=== PATIENT | male | born 1960 | race Hispanic/Latino ===

== ENCOUNTER 2017-10-02 15:13 | Inpatient (IN) | payer MEDICAID ==
[2017-10-02 19:28] VITALS: BMI 29.9
[2017-10-02] MEDS ORDERED: Magnesium Hydroxide Susp 30 ml UD PO PRN (20:17)
[2017-10-02] MEDS ORDERED: Alum-Mag Hydrox-Simethicone Susp (30 mL) PO PRN (20:17)
[2017-10-02] MEDS ORDERED: Bismuth Subsalicylate 262 mg/15 ml Sus (240 ml) PO PRN (20:17)
--- NOTE | 2017-10-02 21:54 | PCM.BM ---
<Lily Leahy - Last Filed: 10/02/17 21:53> Treatment Plan Problems - Problems identified on initial assessmt Altered Sleep Patterns Date Initiated: 10/02/17 Time Initiated: 21:53 Assessment reference: NA Status: Active Altered thought process Date Initiated: 10/02/17 Time Initiated: 21:53 Assessment reference: NA Status: Active Treatment assets and liabiliti Patient Assests: cooperative, self-reliant, ADL independent, good support system , negotiates basic needs, good past tx response, cognitively intact Patient Liabilities: physical pain, medical problems - Milieu Protocol Maintain good personal hygiene: every shift Encourage regular showers, every shift Remind patient to perform daily oral care, every shift Assist patient to perform ADL's Conduct patient checks and document Observation sheet: Q15 minutes Maintain personal safety: every shift Educate patient to report safety concerns to staff, every shift Monitor environment for contraband/sharps Medication safety: Monitor for expected outcome, potential side effects: every shift, Assess barriers to learning: every shift, Assess readiness for medication education: every shift <Mindy Jones - Last Filed: 10/03/17 09:22> - Diagnosis (1) Bipolar disorder Status: Acute Interventions: Medication management, Individual and group therapy, Psychoeducation 10/03/17 09:22 <Candida Morel - Last Filed: 10/03/17 12:12> Family Contact Family contact: Patient agrees to contact, Family has been contacted by patient , Telephone contact initiated by staff Family contact name: Zoie Sanchez - sister Family contacted how many times per week?: 1 - Outside Agency [facility] Care involvment: Information-sharing Agency contact number: [address] [place] [address]. - Goals for Treatment Patient goals for treatment: Pt to be encouraged to attend activity and clinical groups 3-5x per week to decrease symptoms of paranoia, delusions and employ reality testing. Pt to be encouraged to participate in group milieu to develop coping skills to reduce psychiatric hospitalizations and further decompensation. Coordinate discharge resources needs by providing referral for psychiatric treatment follow up in the community. Discharge/Continuing Care - Education Needs Education Needs: Family Medication, Family Diagnosis/Disease Process, Family Coping Skills, Family Placement options, Family Community resources, Family Activities of Daily Living, Family Health Practices/Safety, Family Personal Hygiene/Grooming, Family Aftercare Safety Plan, Patient Medication, Patient Diagnosis/Disease Process, Patient Coping Skills, Patient Placement options, Patient Community resources, Patient Activities of Daily Living, Patient Health Practices/Safety, Patient Personal Hygiene/Grooming, Patient Aftercare Safety Plan - Discharge Discharge Criteria: Tolerates medication w/o severe side effects, Free of paranoid thoughts, Free of agitation, Normal sleep pattern, Ability to care for self, Reduction of target symptoms Discharge to:: Home - Additional Comments 10/03/17 12:07 Pt seen and discussed in team meeting. Reason for hospitalization reviewed and discussed. Pt reported he was at [facility] for several days following chest pain and anxiety. Pt reported that his pacemaker batteries had to be replaced. Pt reported medication non-adherence. Pt presents with acute mae, pressured speech, disorganized thought process, flight of ideas, and hyperverbal. Pt presents with poor insight and judgment due to chronic mental illness and medication non-adherence. Pt's social and medical issues reviewed and discussed. 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 Pt signed a 48 hour notice of intent to leave on 10/03/2017 at 9:12AM. [facility] [place] entered and Screening process explained to pt. Pt verbalized understanding of same. Pt's medications reviewed. SW to continue to follow case. SW to contact pt's sister for additional collateral information. - Treatment Team Participation Discussed with Family/SO: No Was Patient/Family/SO present at Treatment Team Meeting: Yes
[2017-10-03 06:33] LABS: HEMOGLOBIN 13.5 g/dL (12.0-18.0); MEAN CELL VOLUME 91.2 fl (80.0-94.0); RBC 4.36 Mil/uL (4.40-5.90); RED CELL DISTRIBUTION WIDTH 13.7 % (11.5-14.5); WHITE BLOOD COUNT 5.6 K/uL (4.8-10.8)
[2017-10-03 06:53] LABS: ALB/GLOB RATIO 1.4 (1.0-2.1); ALBUMIN 3.7 g/dL (3.5-5.0); ALT/SGPT 49 U/L (21-72); AST/SGOT 36 U/L (17-59); BLOOD UREA NITROGEN 16 mg/dl (9-20); GFR NON-AFRICAN AMERICAN > 60; HDL CHOLESTEROL 50 MG/DL (30-70)
[2017-10-03 06:58] LABS: IRON 53 ug/dL (49-181)
[2017-10-03 07:04] LABS: LDL CHOLESTEROL 47 mg/dL (0-129); T4 3.58 ug/dl (5.5-11.0)
[2017-10-03 07:11] LABS: % IRON SATURATION 18 % (20-55); TOTAL IRON BINDING CAPACITY 294 ug/dL (250-450)
--- NOTE | 2017-10-03 08:44 | PCM.PSYCH ---
Initial Psychiatric Evaluation - Initial Psychiatric Evaluation Type of Admission: Voluntary Legal Status: Capacity Chief Complaint (in patient's own words): "I don't need to be here." Patient's Reaction to Hospitalization: HPI: 56 yo male w/ h/o Bipolar disorder transferred from [facility] for acute mae, pressured speech, tangential thought process and paranoia. When asked if he hears voices, he hesitates to answer and says "I talk to myself." Denies acute VH/SI/HI. Patient does not believe he needs to be in the hospital and requested to sign a 48 hr letter requesting to be discharged. PPHx: H/o 1 past psychiatric hospitalization in [facility] 7 years; h/o Bipolar Disorder MHx: HTN, HLD, CAD, Pacemaker, h/o back surgery, h/o kidney stones, h/o L ankle broken, osteoarthritis ALL: Codeine, IV contrast, PCN, Sulfa drugs FHx: Sister w/ traumatic brain injury SHx: Lives w/ mother; no drugs/etoh/cig use; remote h/o cocaine use (12yrs ago) Current Medications: Active Medications Generic Name Dose Route Start Last Admin Trade Name Freq PRN Reason Stop Dose Admin Acetaminophen 650 mg 10/02/17 20:17 10/02/17 21:19 Tylenol 325mg Tab PO 650 mg Q4 PRN Administration Pain, moderate (4-7) Al Hydrox/Mg Hydrox/Simethicone 30 ml 10/02/17 20:17 Maalox Plus 30 Ml PO Q4 PRN Dyspepsia Bismuth Subsalicylate 524 mg 10/02/17 20:17 Pepto-Bismol PO Q4 PRN Diarrhea Lorazepam 1 mg 10/02/17 20:47 Ativan IM Q8 PRN Agitation Lorazepam 1 mg 10/02/17 20:48 10/02/17 23:30 Ativan PO 1 mg Q8 PRN Administration Agitation Magnesium Hydroxide 30 ml 10/02/17 20:17 Milk Of Magnesia PO HS PRN Constipation Olanzapine 10 mg 10/02/17 22:00 10/02/17 21:19 Zyprexa PO 10 mg HS STEVEN Administration Past Psychiatric History - Past Psychiatric History Previous Treatment History: Inpatient Pertinent Medical Hx (Current Medical&Sleep Prob, Allergies): Allergies Allergy/AdvReac Type Severity Reaction Status Date / Time codeine Allergy RASH Verified 10/02/17 19:31 Iodinated Contrast- Oral and Allergy RASH Verified 10/02/17 19:32 IV Dye Penicillins Allergy RASH Verified 10/02/17 19:32 Sulfa (Sulfonamide Allergy RASH Verified 10/02/17 20:32 Antibiotics) Aspirin [Aspirin Chewable] 81 mg PO DAILY 10/02/17 Atorvastatin [Lipitor] 20 mg PO HS 10/02/17 Losartan Potassium [Cozaar] 100 mg PO DAILY 10/02/17 Metoprolol Succinate [Metoprolol Succinate] 200 mg PO DAILY 10/02/17 OLANZapine [Zyprexa] 10 mg PO HS 10/02/17 amLODIPine [Norvasc] 10 mg PO DAILY 10/02/17 diaZEpam [Valium] 2 mg PO BID PRN 10/02/17 Review of Systems - Psychiatric Psychiatric: As Per HPI, Abnormal Sleep Pattern, Anxiety, Difficulty Concentrating, Irritability, Mood Swings, Paranoia Mental Status Examination - Personal Presentation Personal Presentation: Looks stated age - Affect Affect: Other (Labile) - Motor Activity Motor Activity: Calm - Reliability in Providing Information Reliability in Providing Information: Fair - Speech Speech: Tangential - Mood Mood: Euphoric - Formal Thought Process Formal Thought Process: Loosening of associations, Flight of ideas, Circumstantial - Hallucinations/Delusions Additional comments: When asked about FARHAT, he states "I talk to myself" - Obsessions/Compulsions Obsessions: No Compulsions: No - Cognitive Functions Orientation: Person, Place, Situation, Time Sensorium: Alert Estimate of Intelligence: Average Judgement: Imparied, as evidence by: Lack of insight into illness Memory: Recent intact, as evidence by: Ability to recall events of the day, Remote intact, as evidenced by: Abilit to recall sig. life events - Risk Risk: Diminished functioning - Strength & Assets Inventory Strength & Assets Inventory: Employment history DSM 5 DX - DSM 5 DSM 5 Diagnosis: Bipolar Disorder - Recommended/Plan of Treatment Treatment Recommendations and Plan of Treatment: Bipolar Disorder -Admit to psychiatry unit -Individual and group therapy -Increase Zyprexa -Medicine consult -Screen for involuntary psychiatric admission -Disposition planning Discharge Plan and Discharge Criteria: Screen patient for involuntary psychiatric admission; if patient does not meet criteria for involuntary commitment, patient will be discharged to home - Smoking Cessation Smoking Cessation Initiated: No Reason for not providing: Not indicated
[2017-10-03] MEDS: Metoprolol Succinate 100 mg XL Tab PO SCH (10:01)
[2017-10-03 13:18] LABS: FOLATE 9.2 ng/mL
--- NOTE | 2017-10-03 13:28 | CP.PCM.CON ---
History of Present Illness - History of Present Illness History of Present Illness: 56 yo male with history of Bipolar DO, HTN, HLD and cardiac arrhythmia (with pacemaker recently replaced a week ago) admitted because of manic episode and briana. Review of Systems - Review of Systems All systems: reviewed and no additional remarkable complaints except (aside from those mentioned above, 12 point system review were negative by me) Past Patient History - Tetanus Immunizations Tetanus Immunization: Unknown - Past Social History Smoking Status: Never Smoked Chewing Tobacco Use: No Cigar Use: No Alcohol: None Drugs: Denies - CARDIAC Hx Cardia Arrhythmia: Yes Hx Hypercholesterolemia: Yes Hx Hypertension: Yes Hx Pacemaker: Yes (left side) - RENAL Hx Kidney Stones: Yes (history) - MUSCULOSKELETAL/RHEUMATOLOGICAL Hx Back Pain: Yes Hx Falls: Yes Hx Herniated Disk: Yes Hx Spinal Stenosis: Yes - PSYCHIATRIC Hx Bipolar Disorder: Yes Hx Substance Use: Yes (cocaine,marijuana,oxycodone- 12 yrs ago) - SURGICAL HISTORY Other/Comment: kidney stone removal,lithotripsy - ANESTHESIA Hx Anesthesia: Yes Hx Anesthesia Reactions: No Hx Malignant Hyperthermia: No Has any member of the family had a problem w/ anesthesia?: No Meds Allergies/Adverse Reactions: Allergies Allergy/AdvReac Type Severity Reaction Status Date / Time codeine Allergy RASH Verified 10/02/17 19:31 Iodinated Contrast- Oral and Allergy RASH Verified 10/02/17 19:32 IV Dye Penicillins Allergy RASH Verified 10/02/17 19:32 Sulfa (Sulfonamide Allergy RASH Verified 10/02/17 20:32 Antibiotics) - Medications Medications: Current Medications Acetaminophen (Tylenol 325mg Tab) 650 mg PO Q4 PRN PRN Reason: Pain, moderate (4-7) Last Admin: 10/02/17 21:19 Dose: 650 mg Al Hydrox/Mg Hydrox/Simethicone (Maalox Plus 30 Ml) 30 ml PO Q4 PRN PRN Reason: Dyspepsia Amlodipine Besylate (Norvasc) 10 mg PO DAILY [facility] Aspirin (Aspirin Chewable) 81 mg PO DAILY [facility] Last Admin: 10/03/17 09:11 Dose: 81 mg Atorvastatin Calcium (Lipitor) 20 mg PO DAILY@1600 [facility] Bismuth Subsalicylate (Pepto-Bismol) 524 mg PO Q4 PRN PRN Reason: Diarrhea Lorazepam (Ativan) 1 mg IM Q8 PRN PRN Reason: Agitation Lorazepam (Ativan) 1 mg PO Q8 PRN PRN Reason: Agitation Last Admin: 10/02/17 23:30 Dose: 1 mg Losartan Potassium (Cozaar) 100 mg PO DAILY [facility] Last Admin: 10/03/17 10:04 Dose: 100 mg Magnesium Hydroxide (Milk Of Magnesia) 30 ml PO HS PRN PRN Reason: Constipation Metoprolol Succinate (Toprol Xl) 200 mg PO DAILY [facility] Last Admin: 10/03/17 10:01 Dose: 200 mg Olanzapine (Zyprexa) 20 mg PO HS [facility] Physical Exam - Constitutional Appears: No Acute Distress - Head Exam Head Exam: absent: ATRAUMATIC (abrasions on right parietal regions) - Eye Exam Eye Exam: absent: Scleral icterus - ENT Exam ENT Exam: Mucous Membranes Moist - Neck Exam Neck exam: Negative for: Meningismus - Respiratory Exam Respiratory Exam: absent: Rales, Rhonchi, Wheezes, Respiratory Distress - Cardiovascular Exam Cardiovascular Exam: REGULAR RHYTHM, +S1, +S2 - GI/Abdominal Exam GI & Abdominal Exam: Soft. absent: Tenderness - Rectal Exam Rectal Exam: Deferred - Extremities Exam Extremities exam: Negative for: calf tenderness, pedal edema - Back Exam Back exam: absent: tenderness - Neurological Exam Neurological exam: Alert, Oriented x3 - Psychiatric Exam Psychiatric exam: Normal Affect - Skin Skin Exam: Dry, Intact Results - Vital Signs Recent Vital Signs: Last Vital Signs Temp 97.3 F L 10/03/17 06:00 Pulse 103 H 10/03/17 10:04 Resp 19 10/03/17 06:00 BP 125/88 10/03/17 10:04 Pulse Ox - Labs Result Diagrams: 10/03/17 06:20 10/03/17 06:20 Labs: Laboratory Results - last 24 hr 10/03/17 10/03/17 10/03/17 06:20 06:20 06:20 WBC 5.6 RBC 4.36 L Hgb 13.5 Hct 39.8 MCV 91.2 MCH 31.0 MCHC 34.0 RDW 13.7 Plt Count 203 Sodium 141 Potassium 3.7 Chloride 108 H Carbon Dioxide 27 Anion Gap 10 BUN 16 Creatinine 0.8 Est GFR ( Amer) > 60 Est GFR (Non-Af Amer) > 60 Random Glucose 104 Hemoglobin A1c 5.0 Calcium 9.0 Iron TIBC % Saturation Ferritin 108.0 Total Bilirubin 0.5 AST 36 ALT 49 Alkaline Phosphatase 43 Total Protein 6.3 Albumin 3.7 Globulin 2.6 Albumin/Globulin Ratio 1.4 Triglycerides 151 H Cholesterol 127 LDL Cholesterol Direct 47 HDL Cholesterol 50 Vitamin B12 477 Free T4 Thyroxine (T4) 3.58 L TSH 3rd Generation 1.20 10/03/17 10/03/17 06:20 06:20 WBC RBC Hgb Hct MCV MCH MCHC RDW Plt Count Sodium Potassium Chloride Carbon Dioxide Anion Gap BUN Creatinine Est GFR ( Amer) Est GFR (Non-Af Amer) Random Glucose Hemoglobin A1c Calcium Iron 53 TIBC 294 % Saturation 18 L Ferritin Total Bilirubin AST ALT Alkaline Phosphatase Total Protein Albumin Globulin Albumin/Globulin Ratio Triglycerides Cholesterol LDL Cholesterol Direct HDL Cholesterol Vitamin B12 Free T4 0.58 L Thyroxine (T4) TSH 3rd Generation Assessment & Plan (1) Briana Status: Acute Comment: psyche is managing (2) Paranoia Status: Acute Comment: psyche is managing
[2017-10-03 14:23] LABS: SQUAMOUS EPITHIAL < 1 /hpf (0-5); URINE BILIRUBIN NEGATIVE (NEGATIVE); URINE BLOOD NEGATIVE (NEGATIVE); URINE CLARITY CLEAR (Clear); URINE COLOR YELLOW (YELLOW); URINE GLUCOSE (UA) NEG (Normal); URINE LEUKOCYTE ESTERASE NEG Leu/uL (Negative); URINE PROTEIN NEGATIVE (NEGATIVE); URINE UROBILINOGEN 0.2-1.0 mg/dL (0.2-1.0)
--- NOTE | 2017-10-03 14:49 | CT ---
Date of service: 10/03/2017 PROCEDURE: CT HEAD WITHOUT CONTRAST. HISTORY: head injury COMPARISON: None available. TECHNIQUE: Axial computed tomography images were obtained through the head/brain without intravenous contrast. Radiation dose: Total exam DLP = 929.47 mGy-cm. This CT exam was performed using one or more of the following dose reduction techniques: Automated exposure control, adjustment of the mA and/or kV according to patient size, and/or use of iterative reconstruction technique. FINDINGS: HEMORRHAGE: No intracranial hemorrhage. BRAIN: No mass effect or edema. No atrophy. Moderate patchy periventricular and deep white matter lucency consistent with chronic microvascular ischemic change. No evidence of acute infarct. VENTRICLES: Unremarkable. No hydrocephalus. CALVARIUM: Unremarkable. PARANASAL SINUSES: Unremarkable as visualized. No significant inflammatory changes. MASTOID AIR CELLS: Unremarkable as visualized. No inflammatory changes. OTHER FINDINGS: None. IMPRESSION: No acute intracranial hemorrhage. Chronic white matter ischemic change. Otherwise unremarkable.
--- NOTE | 2017-10-03 16:24 | CARD ---
APPROVED REPORT Date of service: 10/03/2017 EKG Measurement Heart [id number] <Conclusion> Atrial fibrillation with rapid ventricular response Voltage criteria for left ventricular hypertrophy Abnormal ECG
--- NOTE | 2017-10-03 20:41 | CP.PCM.CON ---
History of Present Illness - History of Present Illness History of Present Illness: asked to see pt by pcp for medication management. pt with dizziness and fall in am. pt states he had just had bm, bent over to grab pants and stumbled forward. unsure if he was dizzy. bp then 90/60, bp performed 30 min later was 128/90. denies loc, or any other assoc symptoms. pt has been on his current med regimen for 12 years and stable. pt recently had ppm replaced and is wo complaints of pain, sob, palp, schafer, blurry vision or double vision. Review of Systems - Constitutional Constitutional: As Per HPI. absent: Anorexia, Chills, Daytime Sleepiness, Excessive Sweating, Fatigue, Fever, Frequent Falls, Headache, Increased Appetite , Lethargy, Malaise, Night Sweats, Snoring, Sleep Apnea, Weight Gain, Weight Loss, Weakness, Other - EENT Eyes: As Per HPI. absent: Blind Spots, Blurred Vision, Change in Vision, Decreased Night Vision, Diplopia, Discharge, Dry Eye, Exophthalmos, Floaters, Irritation, Itchy Eyes, Loss of Peripheral Vision, Pain, Photophobia, Requires Corrective Lenses, Sees Flashes, Spots in Vision, Tunnel Vision, Other Visual Disturbances, Loss of Vision, Other Ears: As Per HPI. absent: Decreased Hearing, Ear Discharge, Ear Pain, Tinnitus , Abnormal Hearing, Disequilibrium, Dizziness, Other Nose/Mouth/Throat: As Per HPI. absent: Epistaxis, Nasal Congestion, Nasal Discharge, Nasal Obstruction, Nasal Trauma, Nose Pain, Post Nasal Drip, Sinus Pain, Sinus Pressure, Bleeding Gums, Change in Voice, Dental Pain, Dry Mouth, Dysphagia, Halitosis, Hoarsness, Lip Swelling, Mouth Lesions, Mouth Pain, Odynophagia, Sore Throat, Throat Swelling, Tongue Swelling, Facial Pain, Neck Pain, Neck Mass, Other - Cardiovascular Cardiovascular: As Per HPI. absent: Acrocyanosis, Chest Pain, Chest Pain at Rest, Chest Pain with Activity, Claudication, Diaphoresis, Dyspnea, Dyspnea on Exertion, Edema, Irregular Heart Rhythm, Pain Radiating to Arm/Neck/Jaw, Leg Edema, Leg Ulcers, Lightheadedness, Orthopnea, Palpitations, Paroxysmal Nocturnal Dyspnea, Pedal Edema, Radiating Pain, Rapid Heart Rate, Slow Heart Rate, Syncope, Other - Respiratory Respiratory: As Per HPI. absent: Cough, Dyspnea, Hemoptysis, Dyspnea on Exertion, Wheezing, Snoring, Stridor, Pain on Inspiration, Chest Congestion, Excessive Mucous Production, Change in Mucous Color, Pain with Coughing, Other - Gastrointestinal Gastrointestinal: As Per HPI. absent: Abdominal Pain, Belching, Bloating, Change in Bowel Habits, Change in Stool Character, Coffee Ground Emesis, Constipation, Cramping, Diarrhea, Dyspepsia, Dysphagia, Early Satiety, Excessive Flatus, Fecal Incontinence, Heartburn, Hematemesis, Hematochezia, Loose Stools, Melena, Nausea, Odynophagia, Temesmus, Vomiting, Other - Genitourinary Genitourinary: As Per HPI. absent: Change in Urinary Stream, Difficulty Urinating, Dysuria, Flank Pain, Hematuria, Pyuria, Nocturia, Urinary Incontinence, Urinary Frequency, Urinary Hesitance, Urinary Urgency, Voiding Freq/Small Amts, Freq UTI, Hx Renal/Bladder Calculi, Hx /Renal Surgery, Bladder Distension, Other - Reproductive: Male Reproductive:Male: As Per HPI - Musculoskeletal Musculoskeletal: As Per HPI. absent: Abnormal Gait, Arthralgias, Atrophy, Back Pain, Deformity, Joint Swelling, Limited Range of Motion, Loss of Height, Muscle Cramps, Muscle Weakness, Myalgias, Neck Pain, Numbness, Radiating Pain into Limb, Stiffness, Tingling, Other - Integumentary Integumentary: As Per HPI. absent: Acne, Alopecia, Bleeding Lesions, Change in Hair, Change in Nails, Change in Pigmentation, Changing Lesions, Dry Skin, Erythema, Furuncle, Hirsutism, Lesions, New Lesions, Non-Healing Lesions, Photosensitivity, Pruritus, Rash, Skin Pain, Skin Ulcer, Sores, Striae, Swelling , Unusual Bruising, Wounds, Jaundice, Other - Neurological Neurological: As Per HPI. absent: Abnormal Gait, Abnormal Hearing, Abnormal Movements, Abnormal Speech, Behavioral Changes, Burning Sensations, Confusion, Convulsions, Disequilibrium, Dizziness, Numbness, Focal Weakness, Frequent Falls , Headaches, Lack of Coordination, Loss of Vision, Memory Loss, Paresthesias, Radicular Pain, Restless Legs, Sensory Deficit, Syncope, Tingling, Tremor, Vertigo, Weakness, Other Visual Disturbances, Other - Psychiatric Psychiatric: As Per HPI. absent: Abnormal Sleep Pattern, Anhedonia, Anxiety, Auditory Hallucinations, Behavioral Changes, Change in Appetite (s), Change in Libido, Confusion, Depression, Difficulty Concentrating, Hallucinations, Homicidal Ideation, Hopelessness, Irritability, Memory Loss, Mood Swings, Panic Attacks, Paranoia, Suicidal Ideation, Visual Hallucinations, Tactile Hallucinations, Other - Endocrine Endocrine: As Per HPI. absent: Change in Body Appearance, Change in Libido, Cold Intolorance, Deepening of Voice, Excessive Sweating, Fatigue, Flushing, Heat Intolorance, Increase in Ring/Shoe/Hat Size, Palpitations, Polydipsia, Polyphagia, Polyuria, Other - Hematologic/Lymphatic Hematologic: As Per HPI. absent: Easy Bleeding, Easy Bruising, Lymphadenopathy , Other Past Patient History - Tetanus Immunizations Tetanus Immunization: Unknown - Past Social History Smoking Status: Never Smoked Chewing Tobacco Use: No Cigar Use: No Alcohol: None Drugs: Denies - CARDIAC Hx Cardia Arrhythmia: Yes Hx Hypercholesterolemia: Yes Hx Hypertension: Yes Hx Pacemaker: Yes (left side) - RENAL Hx Kidney Stones: Yes (history) - MUSCULOSKELETAL/RHEUMATOLOGICAL Hx Back Pain: Yes Hx Falls: Yes Hx Herniated Disk: Yes Hx Spinal Stenosis: Yes - PSYCHIATRIC Hx Bipolar Disorder: Yes Hx Substance Use: Yes (cocaine,marijuana,oxycodone- 12 yrs ago) - SURGICAL HISTORY Other/Comment: kidney stone removal,lithotripsy - ANESTHESIA Hx Anesthesia: Yes Hx Anesthesia Reactions: No Hx Malignant Hyperthermia: No Has any member of the family had a problem w/ anesthesia?: No Meds Allergies/Adverse Reactions: Allergies Allergy/AdvReac Type Severity Reaction Status Date / Time codeine Allergy RASH Verified 10/02/17 19:31 Iodinated Contrast- Oral and Allergy RASH Verified 10/02/17 19:32 IV Dye Penicillins Allergy RASH Verified 10/02/17 19:32 Sulfa (Sulfonamide Allergy RASH Verified 10/02/17 20:32 Antibiotics) - Medications Medications: Current Medications Acetaminophen (Tylenol 325mg Tab) 650 mg PO Q4 PRN PRN Reason: Pain, moderate (4-7) Last Admin: 10/03/17 14:09 Dose: 650 mg Al Hydrox/Mg Hydrox/Simethicone (Maalox Plus 30 Ml) 30 ml PO Q4 PRN PRN Reason: Dyspepsia Amlodipine Besylate (Norvasc) 10 mg PO DAILY [facility] Last Admin: 10/03/17 14:14 Dose: Not Given Aspirin (Aspirin Chewable) 81 mg PO DAILY [facility] Last Admin: 10/03/17 09:11 Dose: 81 mg Atorvastatin Calcium (Lipitor) 20 mg PO DAILY@1600 [facility] Last Admin: 10/03/17 16:26 Dose: 20 mg Bismuth Subsalicylate (Pepto-Bismol) 524 mg PO Q4 PRN PRN Reason: Diarrhea Lorazepam (Ativan) 1 mg IM Q8 PRN PRN Reason: Agitation Lorazepam (Ativan) 1 mg PO Q8 PRN PRN Reason: Agitation Last Admin: 10/03/17 14:22 Dose: 1 mg Losartan Potassium (Cozaar) 100 mg PO DAILY [facility] Last Admin: 10/03/17 10:04 Dose: 100 mg Magnesium Hydroxide (Milk Of Magnesia) 30 ml PO HS PRN PRN Reason: Constipation Metoprolol Succinate (Toprol Xl) 200 mg PO DAILY [facility] Last Admin: 10/03/17 10:01 Dose: 200 mg Olanzapine (Zyprexa) 20 mg PO HS [facility] Physical Exam - Constitutional Appears: Well - Head Exam Head Exam: ATRAUMATIC, NORMAL INSPECTION, NORMOCEPHALIC - Eye Exam Eye Exam: EOMI, Normal appearance, PERRL. absent: Conjunctival injection, Nystagmus, Periorbital swelling, Periorbital tenderness, Scleral icterus Pupil Exam: NORMAL ACCOMODATION, PERRL. absent: Fixed, Irregular, Miosis, Mydriatic, Unequal - ENT Exam ENT Exam: Mucous Membranes Moist, Normal Exam. absent: Mucous Membranes Dry, Normal External Ear Exam, Normal Oropharynx, TM's Normal Bilaterally - Neck Exam Neck exam: Positive for: Normal Inspection - Respiratory Exam Respiratory Exam: Clear to Auscultation Bilateral, NORMAL BREATHING PATTERN. absent: Accessory Muscle Use, Chest Wall Tenderness, Decreased Breath Sounds, Prolonged Expiratory Phase, Rales, Rhonchi, Wheezes, Respiratory Distress, Stridor - Cardiovascular Exam Cardiovascular Exam: REGULAR RHYTHM, +S1, +S2, Systolic Murmur. absent: Bradycardia, Tachycardia, Clicks, Diastolic murmur, Gallop, Irregular Rhythm, JVD, RRR, Rubs, +S4 - GI/Abdominal Exam GI & Abdominal Exam: Normal Bowel Sounds, Soft. absent: Bruit, Diminished Bowel Sounds, Distended, Firm, Guarding, Hernia, Hyperactive Bowel Sounds, Hypoactive Bowel Sounds, Mass, Organomegaly, Pulsatile Mass, Rebound, Rigid, Tenderness - Rectal Exam Rectal Exam: Deferred - Extremities Exam Extremities exam: Positive for: normal inspection. Negative for: calf tenderness, full ROM, joint swelling, normal capillary refill, pedal edema, tenderness, pedal pulses present - Back Exam Back exam: NORMAL INSPECTION. absent: CVA tenderness (L), CVA tenderness (R), FULL ROM, muscle spasm, paraspinal tenderness, rash noted, tenderness, vertebral tenderness - Neurological Exam Neurological exam: Alert, CN II-XII Intact, Normal Gait, Oriented x3, Reflexes Normal - Psychiatric Exam Psychiatric exam: Normal Affect, Normal Mood - Skin Skin Exam: Dry, Intact, Normal Color, Warm Results - Vital Signs Recent Vital Signs: Last Vital Signs Temp 97.6 F 10/03/17 15:48 Pulse 69 10/03/17 15:48 Resp 20 10/03/17 15:48 BP 98/70 L 10/03/17 15:48 Pulse Ox - Labs Result Diagrams: 10/03/17 06:20 10/03/17 06:20 Labs: Laboratory Results - last 24 hr 10/03/17 10/03/17 10/03/17 06:20 06:20 06:20 WBC 5.6 RBC 4.36 L Hgb 13.5 Hct 39.8 MCV 91.2 MCH 31.0 MCHC 34.0 RDW 13.7 Plt Count 203 Sodium 141 Potassium 3.7 Chloride 108 H Carbon Dioxide 27 Anion Gap 10 BUN 16 Creatinine 0.8 Est GFR ( Amer) > 60 Est GFR (Non-Af Amer) > 60 Random Glucose 104 Hemoglobin A1c 5.0 Calcium 9.0 Iron TIBC % Saturation Ferritin 108.0 Total Bilirubin 0.5 AST 36 ALT 49 Alkaline Phosphatase 43 Total Protein 6.3 Albumin 3.7 Globulin 2.6 Albumin/Globulin Ratio 1.4 Triglycerides 151 H Cholesterol 127 LDL Cholesterol Direct 47 HDL Cholesterol 50 Vitamin B12 477 Folate 9.2 Free T4 Thyroxine (T4) 3.58 L TSH 3rd Generation 1.20 Urine Color Urine Clarity Urine pH Ur Specific [place] Urine Protein Urine Glucose (UA) Urine Ketones Urine Blood Urine Nitrate Urine Bilirubin Urine Urobilinogen Ur Leukocyte Esterase Urine RBC (Auto) Urine Microscopic WBC Ur Squamous Epith Cells RPR 10/03/17 10/03/17 10/03/17 06:20 06:20 06:20 WBC RBC Hgb Hct MCV MCH MCHC RDW Plt Count Sodium Potassium Chloride Carbon Dioxide Anion Gap BUN Creatinine Est GFR ( Amer) Est GFR (Non-Af Amer) Random Glucose Hemoglobin A1c Calcium Iron 53 TIBC 294 % Saturation 18 L Ferritin Total Bilirubin AST ALT Alkaline Phosphatase Total Protein Albumin Globulin Albumin/Globulin Ratio Triglycerides Cholesterol LDL Cholesterol Direct HDL Cholesterol Vitamin B12 Folate Free T4 0.58 L Thyroxine (T4) TSH 3rd Generation Urine Color Urine Clarity Urine pH Ur Specific [place] Urine Protein Urine Glucose (UA) Urine Ketones Urine Blood Urine Nitrate Urine Bilirubin Urine Urobilinogen Ur Leukocyte Esterase Urine RBC (Auto) Urine Microscopic WBC Ur Squamous Epith Cells RPR Nonreactive 10/03/17 14:13 WBC RBC Hgb Hct MCV MCH MCHC RDW Plt Count Sodium Potassium Chloride Carbon Dioxide Anion Gap BUN Creatinine Est GFR ( Amer) Est GFR (Non-Af Amer) Random Glucose Hemoglobin A1c Calcium Iron TIBC % Saturation Ferritin Total Bilirubin AST ALT Alkaline Phosphatase Total Protein Albumin Globulin Albumin/Globulin Ratio Triglycerides Cholesterol LDL Cholesterol Direct HDL Cholesterol Vitamin B12 Folate Free T4 Thyroxine (T4) TSH 3rd Generation Urine Color Yellow Urine Clarity Clear Urine pH 7.0 Ur Specific [place] 1.016 Urine Protein Negative Urine Glucose (UA) Neg Urine Ketones Negative Urine Blood Negative Urine Nitrate Negative Urine Bilirubin Negative Urine Urobilinogen 0.2-1.0 Ur Leukocyte Esterase Neg Urine RBC (Auto) 4 H Urine Microscopic WBC < 1 Ur Squamous Epith Cells < 1 RPR Assessment & Plan (1) New onset a-fib Status: Acute Comment: SEEN ON EKG. ON EXAM PTS PULSE WAS NML AND REGULAR. (2) Dizziness Status: Acute (3) Orthostatic hypotension dysautonomic syndrome Status: Acute (4) Pacemaker Status: Acute (5) HTN (hypertension) Status: Acute (6) Dyslipidemia Status: Acute (7) Bipolar disorder Status: Acute (8) Paranoia Status: Acute - Assessment and Plan (Free Text) Plan: DIZZINESS LIKELY DUE TO VASOVAGAL VS AUTONOMIC DYSFUNCTION FROM BENDING OVER. WOULD MONITOR FOR FURTHER SYMPTOMS, IF THEY OCCUR THEN MAY NEED TO TITRATE BP MED DOSES DOWN. THE ADDITION OF PSYCH MEDS MAY LEAD TO LOWER BP. FOR NOW THE MEDICATIONS SHOULD STAY THE SAME FOR BP AND DYSLIPIDEMIA AFIB ON EKG, PT HAS NO HX OF AFIB. WOULD REPEAT THE ECG. GIVEN RECENT FALL WOULD NOT START ANTICOAGULATION UNTIL PERSISTENT AFIB IS DIAGNOSED. KEEP PT ON ASA. ECHO SHOULD BE DONE TO EVAL FOR ANY STRUCTURAL ABN. 95 MIN TOTAL CARE TIME
[2017-10-04] MEDS: Metoprolol Succinate 100 mg XL Tab PO SCH (08:42)
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
[2017-10-05] MEDS: Metoprolol Succinate 100 mg XL Tab PO SCH (08:45)
--- NOTE | 2017-10-05 12:13 | CARD ---
APPROVED REPORT Date of service: 10/04/2017 <Conclusion> Normal sinus rhythm Moderate voltage criteria for LVH, may be normal variant Borderline ECG
--- NOTE | 2017-10-06 00:02 | PCM.PYCHPN ---
Psychiatric Progress Note - Psychiatric Progress Note Patient seen today, length of contact: pt seen and evaluated. Patient Chief Complaint: pt has been c/o getting dizzy when getting up quickly from bed after sleep .pt seen and vital signs checked and within normal limits and reassurance is provided.patient has remained acutely manic and disorganized and with paranoid ideation and flights of ideation and remains high risk with poor insight and need further stabilization.. Medication Change: No Medical Record Reviewed: Yes Mental Status Examination - Cognitive Function Orientation: Person, Place, Situation, Time Attention: Poor Concentration: Poor Association: WNL Fund of Knowledge: WNL - Mood Mood: Anxious, Euphoric - Affect Affect: Other (Labile) - Formal Thought Process Formal Thought Process: Delusions, Paranoia, Flight of ideas, Circumstantial - Suicidal Ideation Suicidal Ideation: No - Homicidal Ideation Homicidal Ideation: No Goal/Treatment Plan - Goal/Treatment Plan Progress Toward Problem(s) and Goals/Treatment Plan: will continue the current meds and monitor the vital signs . pt encouraged to get up slowly from bed due to orthostatic hypotension. follow up with cardiology regarding results of echo once done and further recommendations .
[2017-10-06] MEDS: Metoprolol Succinate 100 mg XL Tab PO SCH (08:48)
--- NOTE | 2017-10-06 12:44 | PCM.PYCHPN ---
Psychiatric Progress Note - Psychiatric Progress Note Patient seen today, length of contact: Patient evaluated, case discussed w/ team , chart reviewed Patient Chief Complaint: "I'm okay." Problems Identified/Issues Discussed: Patient was screened by [facility] [place] [facility] and not accepted for involuntary psychiatric admission. He did agree to continue to stay in the hospital for continued psychiatric treatment. He continues to be hypomanic, w/ poor sleep, pressured speech and is inappropriately flirtatious with staff. He has been compliant with medications. Medication Change: No Medical Record Reviewed: Yes Consults ordered or reviewed: Medicine consult, Cardiology consult Mental Status Examination - Cognitive Function Orientation: Person, Place, Situation, Time Memory: Intact Attention: WNL Concentration: WNL Association: [facility] Fund of Knowledge: [facility] Decription of patient's judgement and insights: Poor I/ Fair J - Mood Mood: Euphoric - Affect Affect: Other (Labile) - Speech Speech: Loud, Pressured - Formal Thought Process Formal Thought Process: Flight of ideas, Circumstantial Psychotic Thoughts and Behaviors: Denies acute AH/VH/paranoia/delusions - Suicidal Ideation Suicidal Ideation: No - Homicidal Ideation Homicidal Ideation: No Goal/Treatment Plan - Goal/Treatment Plan Need for Continued Stay: Remain at risks for inpatient hospitalization, Discharge may exacerbated symptoms Progress Toward Problem(s) and Goals/Treatment Plan: Bipolar Disorder -Individual and group therapy -Continue Zyprexa -Medicine consult -Cardiology consult -Disposition planning Estimated Date of D/C: 10/08/17
--- NOTE | 2017-10-06 14:09 | CARD ---
APPROVED REPORT Date of service: 10/06/2017 EXAM: Two-dimensional and M-mode echocardiogram with Doppler and color Doppler. Other Information Quality : GoodRhythm : NSR INDICATION Atrial Fibrillation Surgery/Intervention Pacemaker: 2D DIMENSIONS IVSd1.10 (0.7-1.1cm)LVDd4.80 (3.9-5.9cm) LVOT Diameter2.00 (1.8-2.4cm)PWd1.10 (0.7-1.1cm) IVSs1.81 (0.8-1.2cm)LVDs3.73 (2.5-4.0cm) FS (%) 18.2 %PWs1.53 (0.8-1.2cm) M-Mode DIMENSIONS Left Atrium (MM)5.06 (2.5-4.0cm)Aortic Root2.88 (2.2-3.7cm) Aortic Cusp Exc.2.00 (1.5-2.0cm)IVSs1.79 cm FS (%) 41 %LVDs3.56 (2.0-3.8cm) PWs1.71 cm Aortic Valve AoV Peak Pjpyzdhm485.7cm/sAoV VTI24.5cmAO Peak GR.6mmHg LVOT Peak Ziwxaplf46.2cm/sLVOT VTI18.68cmAO Mean GR.3mmHg Mitral Valve MV E Plklvdbt44.8cm/sMV DECEL [id number] A Tmhlzrrd71.4cm/s MV HFQ25ioP/A ratio0.7MVA (PHT)3.55cm2 TDI Lateral E' Peak V4.97cm/sMedial E' Peak V6.11cm/sE/Lateral E'9.8 E/Medial E'8.0 Pulmonary Valve PV Peak Uivnskzp471.3cm/s Tricuspid Valve [id number] LEFT VENTRICLE The left ventricle is normal size. There is normal left ventricular wall thickness. The left ventricular ejection fraction is within the normal range. The Ejection Fraction is 60%. No regional wall motion abnormalities noted.. Transmitral Doppler flow pattern is Grade I-abnormal relaxation pattern. No left ventricle thrombus noted on this study. There is no ventricular septal defect visualized. There is no mass noted in the left ventricle. RIGHT VENTRICLE The right ventricle is normal size. There is normal right ventricular wall thickness. The right ventricular systolic function is normal. RV pacemaker lead present ATRIA The left atrium size is moderately dilated The right atrium size is normal. RA pacemaker lead present The interatrial septum is intact with no evidence for an atrial septal defect. AORTIC VALVE The aortic valve is normal in structure. No aortic regurgitation is present. There is no aortic valvular stenosis. MITRAL VALVE The mitral valve is normal in structure. There is no mitral valve stenosis. There is no mitral valve regurgitation noted. TRICUSPID VALVE The tricuspid valve is normal in structure. There is trivial tricuspid valve regurgitation noted. PASP within normal limits PULMONIC VALVE The pulmonary valve is normal in structure. There is no pulmonic valvular regurgitation. GREAT VESSELS The aortic root is normal in size. The ascending aorta is normal in size. The pulmonary artery is normal. The IVC is normal in size and collapses >50% with inspiration. PERICARDIAL EFFUSION There is no pericardial effusion. <Conclusion> Trivial TR with normal PASP Dilated left atrium Normal LV systolic function with doppler hemodynamics consistent with abnormal relxation Right heart pacemaker leads The Ejection Fraction is 60%.
--- NOTE | 2017-10-06 18:13 | CARD ---
APPROVED REPORT Date of service: 10/05/2017 <Conclusion> Normal sinus rhythm Possible Left atrial enlargement Left ventricular hypertrophy Abnormal ECG
--- NOTE | 2017-10-06 19:37 | CP.PCM.PN ---
Subjective - Date & Time of Evaluation Date of Evaluation: 10/06/17 Time of Evaluation: 19:35 - Subjective Subjective: REPEAT EKG SR ECHO SHOWS NML RF AND VALVES Objective - Vital Signs/Intake and Output Vital Signs (last 24 hours): Temp Pulse Resp BP Pulse Ox 97.7 F 86 18 113/69 10/06/17 17:12 10/06/17 17:12 10/06/17 17:12 10/06/17 17:12 - Medications Medications: Current Medications Acetaminophen (Tylenol 325mg Tab) 650 mg PO Q4 PRN PRN Reason: Pain, moderate (4-7) Last Admin: 10/06/17 14:42 Dose: 650 mg Al Hydrox/Mg Hydrox/Simethicone (Maalox Plus 30 Ml) 30 ml PO Q4 PRN PRN Reason: Dyspepsia Amlodipine Besylate (Norvasc) 10 mg PO DAILY [facility] Last Admin: 10/06/17 08:47 Dose: 10 mg Aspirin (Aspirin Chewable) 81 mg PO DAILY [facility] Last Admin: 10/06/17 08:44 Dose: 81 mg Atorvastatin Calcium (Lipitor) 20 mg PO DAILY@1600 [facility] Last Admin: 10/06/17 16:24 Dose: 20 mg Bismuth Subsalicylate (Pepto-Bismol) 524 mg PO Q4 PRN PRN Reason: Diarrhea Lorazepam (Ativan) 1 mg IM Q8 PRN PRN Reason: Agitation Lorazepam (Ativan) 1 mg PO Q8 PRN PRN Reason: Agitation Last Admin: 10/06/17 08:51 Dose: 1 mg Losartan Potassium (Cozaar) 100 mg PO DAILY [facility] Last Admin: 10/06/17 08:47 Dose: 100 mg Magnesium Hydroxide (Milk Of Magnesia) 30 ml PO HS PRN PRN Reason: Constipation Metoprolol Succinate (Toprol Xl) 200 mg PO DAILY [facility] Last Admin: 10/06/17 08:48 Dose: 200 mg Olanzapine (Zyprexa) 20 mg PO DAILY@2000 [facility] - Labs Labs: 10/03/17 06:20 10/03/17 06:20 - Constitutional Appears: Well - Head Exam Head Exam: ATRAUMATIC, NORMAL INSPECTION, NORMOCEPHALIC - Eye Exam Eye Exam: EOMI, Normal appearance, PERRL - ENT Exam ENT Exam: Mucous Membranes Moist, Normal Exam - Neck Exam Neck Exam: Full ROM, Normal Inspection. absent: Lymphadenopathy - Respiratory Exam Respiratory Exam: Clear to Ausculation Bilateral, NORMAL BREATHING PATTERN - Cardiovascular Exam Cardiovascular Exam: REGULAR RHYTHM, +S1, +S2, Murmur. absent: Bradycardia, Tachycardia, Clicks, Diastolic murmur, Gallop, Irregular Rhythm, JVD, RRR, Rubs , +S4 - GI/Abdominal Exam GI & Abdominal Exam: Soft, Normal Bowel Sounds. absent: Bruit, Distended, Firm , Guarding, Rigid, Tenderness, Diminished Bowel Sounds, Hernia, Hyperactive Bowel Sounds, Hypoactive Bowel Sounds, Organomegaly, Pulsatile Mass, Rebound, Mass - Rectal Exam Rectal Exam: Deferred - Extremities Exam Extremities Exam: Full ROM, Normal Capillary Refill, Normal Inspection. absent : Calf Tenderness, Joint Swelling, Pedal Edema, Tenderness - Back Exam Back Exam: NORMAL INSPECTION. absent: CVA tenderness (L), CVA tenderness (R), Full ROM, muscle spasm, paraspinal tenderness, rash noted, tenderness, vertebral tenderness - Neurological Exam Neurological Exam: Alert, Awake, CN II-XII Intact, Normal Gait, Oriented x3. absent: Abnormal Gait, Altered, Motor Sensory Deficit, Reflexes Normal - Psychiatric Exam Psychiatric exam: Normal Affect, Normal Mood. absent: Agitated, Anxious, Depressed, Flat Affect, Homicidal Ideation, Manic, Suicidal Ideation - Skin Skin Exam: Dry, Intact, Normal Color, Warm. absent: Abrasion, Cyanosis, Diaphoretic, Erythema, Mottled, Pallor, Pallor, Petechiae, Rash, Urticaria, Vesicles Assessment and Plan (1) New onset a-fib Assessment & Plan: BASED ON ECHO PT HAS LONE AFIB AND A LOW JERSON SCORE. WOULD CONT TREATMENT WITH ASA ONLY. Status: Acute (2) Dizziness Status: Acute (3) Orthostatic hypotension dysautonomic syndrome Status: Acute (4) Pacemaker Status: Acute (5) HTN (hypertension) Status: Acute (6) Dyslipidemia Status: Acute (7) Bipolar disorder Status: Acute (8) Paranoia Status: Acute - Assessment and Plan (Free Text) Plan: BP AND HR STABLE ON CURRENT MEDS. RECHECK LYTES AND EKG.
[2017-10-07] MEDS: Metoprolol Succinate 100 mg XL Tab PO SCH (08:35)
--- NOTE | 2017-10-07 08:40 | PCM.PYCHPN ---
Psychiatric Progress Note - Psychiatric Progress Note Patient seen today, length of contact: Patient evaluated, case discussed w/ team , chart reviewed Patient Chief Complaint: "I'm okay." Problems Identified/Issues Discussed: Patient submitted a 48 hr letter yesterday requesting to be discharged. He does not meet criteria for involuntary commitment at this time, so we discussed that he would be discharged tomorrow. He is less hypomanic, calmer on conversation w/ less pressured speech and denies acute psychosis. SW spoke with patient's sister who does not believe he is an acute danger to himself or others at this time. No adverse effects to medications reported. Medication Change: No Medical Record Reviewed: Yes Consults ordered or reviewed: Medicine consult, Cardiology consult Mental Status Examination - Cognitive Function Orientation: Person, Place, Situation, Time Memory: Intact Attention: WNL Concentration: WNL Association: WNL Fund of Knowledge: WN Decription of patient's judgement and insights: Poor I/ Fair J - Mood Mood: Neutral - Affect Affect: Broad - Speech Speech: Loud, Pressured - Formal Thought Process Formal Thought Process: Loosening of associations, Circumstantial Psychotic Thoughts and Behaviors: Denies acute AH/VH/paranoia/delusions - Suicidal Ideation Suicidal Ideation: No - Homicidal Ideation Homicidal Ideation: No Goal/Treatment Plan - Goal/Treatment Plan Need for Continued Stay: Remain at risks for inpatient hospitalization, Discharge may exacerbated symptoms Progress Toward Problem(s) and Goals/Treatment Plan: Bipolar Disorder -Individual and group therapy -Continue Zyprexa -Medicine consult -Cardiology consult -Disposition planning- patient submitted a 48 hr letter, he will be discharged tomorrow as he does not meet criteria for involuntary psychiatric commitment at this time Estimated Date of D/C: 10/08/17
[2017-10-07 08:49] LABS: ALB/GLOB RATIO 1.5 (1.0-2.1); ALBUMIN 4.7 g/dL (3.5-5.0); ALT/SGPT 52 U/L (21-72); AST/SGOT 41 U/L (17-59); BLOOD UREA NITROGEN 18 mg/dl (9-20); CALCIUM 9.5 mg/dL (8.4-10.2); GFR NON-AFRICAN AMERICAN > 60
[2017-10-07 09:11] LABS: T3 1.15 nmol/L (1.49-2.60)
--- NOTE | 2017-10-07 22:43 | CARD ---
APPROVED REPORT Date of service: 10/07/2017 EKG Measurement Heart [id number] <Conclusion> Normal sinus rhythm Possible Left atrial enlargement Left ventricular hypertrophy Abnormal ECG
[2017-10-08] MEDS: Metoprolol Succinate 100 mg XL Tab PO SCH (08:34)
--- NOTE | 2017-10-08 10:47 | PCM.PYCHPN ---
Psychiatric Progress Note - Psychiatric Progress Note Patient seen today, length of contact: Patient evaluated, case discussed w/ team , chart reviewed Patient Chief Complaint: "I'm okay." Problems Identified/Issues Discussed: Patient retracted his 48 hr letter yesterday and agreed to stay for continued psychiatric treatment. He was started on [place], but today states that he does not know if he does not want to continue taking it. He is upset that the medication works and makes him feel less manic. Homebound Teacher provided psychoeducation that that is the function of the medication, but patient has poor insight and states that he enjoys his mae and increase in productivity. No adverse effects to medications reported. Medication Change: No Medical Record Reviewed: Yes Consults ordered or reviewed: Medicine consult, Cardiology consult Mental Status Examination - Cognitive Function Orientation: Person, Place, Situation, Time Memory: Intact Attention: WNL Concentration: WNL Association: WNL Fund of Knowledge: [facility] Decription of patient's judgement and insights: Poor I/ Fair J - Mood Mood: Euphoric - Affect Affect: Broad - Speech Speech: Loud, Pressured - Formal Thought Process Formal Thought Process: Loosening of associations, Circumstantial Psychotic Thoughts and Behaviors: Denies acute AH/VH/paranoia/delusions - Suicidal Ideation Suicidal Ideation: No - Homicidal Ideation Homicidal Ideation: No Goal/Treatment Plan - Goal/Treatment Plan Need for Continued Stay: Remain at risks for inpatient hospitalization, Discharge may exacerbated symptoms Progress Toward Problem(s) and Goals/Treatment Plan: Bipolar Disorder -Individual and group therapy -Continue Zyprexa -Continue [place] -Medicine consult -Cardiology consult Estimated Date of D/C: 10/10/17
--- NOTE | 2017-10-08 16:17 | PN ---
Copied To: Mic Esquivel MD Attending MD: Mic Esquivel MD DATE: 10/05/2017 PSYCHIATRIC FOLLOWUP PROGRESS NOTE SUBJECTIVE: The patient has been seen today. The chart reviewed and the case discussed with treatment master steam yacht. The patient has been complaining of feeling dizzy when getting up from the bed quickly. The patient had been seen and vital signs checked and within normal limits and reassurance provided. The patient is not exhibiting any symptoms of atrial fibrillation. No arrhythmias noted; however, he has been acutely manic and disorganized with paranoid ideation and flight of ideation remains with a very poor insight and poor judgment regarding his manic behavior and remains high risk and needs further stabilization. The patient has agreed to stay in the hospital and 48 hour later and he is willing to be further stabilized with the current medication regimen and also medically stabilized as well for his medical issues. The patient denies any suicidal ideation, but remains with a very poor insight and remains high risk and needs further stabilization. The patient still has positive symptoms for the mae with flight of ideations, racing thoughts, unstable mood, labile affect and also disorganized thinking at times when he get upset and angry and needs to be redirected. The patient therefore is still remaining manic with poor insight and poor judgment and needs further stabilization. DIAGNOSTIC IMPRESSION: Bipolar disorder type 1, most recent episode is manic with psychotic features. PLAN OF TREATMENT: We will continue the current regimen of medications and further titrate the medicine as needed to stabilize the patient. The patient is currently prescribed lithium carbonate 300 mg twice a day and has been doing well on olanzapine 20 mg daily, which has been stabilized with the patient's manic symptoms. The patient will need to be further titrated on his medication for both the stabilization and management. Mic Esquivel MD
[2017-10-09] MEDS: Metoprolol Succinate 100 mg XL Tab PO SCH (08:43)
--- NOTE | 2017-10-09 10:05 | PCM.PYCHPN ---
Psychiatric Progress Note - Psychiatric Progress Note Patient seen today, length of contact: Patient evaluated, case discussed w/ team , chart reviewed Patient Chief Complaint: "I'm okay." Problems Identified/Issues Discussed: Patient is less manic, calmer, more redirectable and appropriately goal oriented. He reports that the [place] makes him feel sleepy during the day, so we discussed changing the dosage to HS. NO AH/VH/SI/HI. We discussed the importance of compliance w/ treatment and medications. He has improved insight/ judgment. Medication Change: Yes (Change [place] to HS dosing) Medical Record Reviewed: Yes Consults ordered or reviewed: Medicine consult, Cardiology consult Mental Status Examination - Cognitive Function Orientation: Person, Place, Situation, Time Memory: Intact Attention: WNL Concentration: WNL Association: WNL Fund of Knowledge: WNL Decription of patient's judgement and insights: Improving I/J - Mood Mood: Neutral - Affect Affect: Broad - Speech Speech: Appropriate - Formal Thought Process Formal Thought Process: Loosening of associations, Circumstantial Psychotic Thoughts and Behaviors: Denies acute AH/VH/paranoia/delusions - Suicidal Ideation Suicidal Ideation: No - Homicidal Ideation Homicidal Ideation: No Goal/Treatment Plan - Goal/Treatment Plan Need for Continued Stay: Remain at risks for inpatient hospitalization, Discharge may exacerbated symptoms Progress Toward Problem(s) and Goals/Treatment Plan: Bipolar Disorder -Individual and group therapy -Continue Zyprexa -Change [place] dosing to HS -Medicine consult -Cardiology consult -Disposition- Discharge tomorrow w/ outpatient follow-up Estimated Date of D/C: 10/10/17
[2017-10-10 05:52] VITALS: RESP 18; TEMP 97.8
--- NOTE | 2017-10-10 08:27 | PCM.PYCHDC ---
Mental Status Examination - Mental Status Examination Orientation: Person, Place, Situation, Time Memory: Intact Mood: Neutral Affect: Broad Speech: Appropriate Attention: WNL Concentration: WNL Association: WNL Fund of Knowledge: WNL Formal Thought Process: No Impairment Description of patient's judgement and insight: Fair I/J Psychotic Thoughts and Behaviors: Denies acute AH/VH/paranoia/delusions Suicidal Ideation: No Current Homicidal Ideation?: No Discharge Summary - Discharge Note Reason for Hospitalization: HPI: 56 yo male w/ h/o Bipolar disorder transferred from [facility] for acute mae, pressured speech, tangential thought process and paranoia. When asked if he hears voices, he hesitates to answer and says "I talk to myself." Denies acute VH/SI/HI. Patient does not believe he needs to be in the hospital and requested to sign a 48 hr letter requesting to be discharged. PPHx: H/o 1 past psychiatric hospitalization in [facility] 7 years; h/o Bipolar Disorder MHx: HTN, HLD, CAD, Pacemaker, h/o back surgery, h/o kidney stones, h/o L ankle broken, osteoarthritis ALL: Codeine, IV contrast, PCN, Sulfa drugs FHx: Sister w/ traumatic brain injury SHx: Lives w/ mother; no drugs/etoh/cig use; remote h/o cocaine use (12yrs ago) Laboratory Data: Abnormal Lab Results 10/10/17 06:18 [place] 0.2 L Consultations:: List each consultation separately and include: 1. Reason for request. 2. Findings. 3. Follow-up Consultations: Medicine consult, Cardiology consult Summary of Hospital Course include:: 1. Description of specific treatment plan utilized for patients during their course of treatmen. 2. Summarize the time- course for resolution of acute symptoms and/or regressed behaviors. 3. Describe issues identified and worked on during hospitalization. 4. Describe medication utilized. 5. Describe medical problems identified and treated. 6. Reassessment of suicide risk Summary of Hospital Course: Patient was admitted to the psychiatry unit. Individual and group therapy were provided. Patient was stabilized on Zyprexa 20 mg PO HS and [place] 600 mg PO HS. He is no longer manic. He is calm, cooperative. NO AH/VH/SI/HI/paranoia/ delusions. He is psychiatrically stable for discharge. Psychoeducation provided on the importance of compliance with treatment and medications. - Diagnosis (1) Bipolar disorder Current Visit: Yes Status: Chronic - Final Diagnosis (DSM 5) Condition upon Discharge: STABLE DSM 5: Bipolar Disorder Disposition: HOME/ ROUTINE Follow-up Treatment Plan: Bipolar Disorder -Individual and group therapy -Continue Zyprexa 20 mg PO HS -Continue [place] 600 mg PO HS -Medicine consult -Cardiology consult Prescriptions/Medication Reconciliation: amLODIPine [Norvasc] 10 mg PO DAILY #30 tab Aspirin [Aspirin Chewable] 81 mg PO DAILY #30 chew Atorvastatin [Lipitor] 20 mg PO HS #30 tab [place] Carbonate [[place] Carbonate 300MG] 600 mg PO HS #60 cap Losartan Potassium [Cozaar] 100 mg PO DAILY #30 tablet Metoprolol Succinate 200 mg PO DAILY #30 tab.er.24h Olanzapine [Zyprexa] 20 mg PO HS #30 tablet - Smoking Cessation Smoking Cessation Medication prescribed: No Reason for not providing: Not indicated - Antipsychotic Medications Pt discharged on 2 or more routine antipsychotic medications: No
[2017-10-10] MEDS: Metoprolol Succinate 100 mg XL Tab PO SCH (08:43)
[2017-10-10 08:44] VITALS: BP 119/76; PULSE 91
--- NOTE | 2017-10-10 14:45 | PCM.BM ---
Treatment Plan Problems - Problems identified on initial assessmt Altered Sleep Patterns Date Initiated: 10/02/17 Time Initiated: 21:53 Assessment reference: NA Status: Active Altered thought process Date Initiated: 10/02/17 Time Initiated: 21:53 Assessment reference: NA Status: Active Treatment assets and liabiliti Patient Assests: cooperative, self-reliant, ADL independent, good support system , negotiates basic needs, good past tx response, cognitively intact Patient Liabilities: physical pain, medical problems - Milieu Protocol Maintain good personal hygiene: every shift Encourage regular showers, every shift Remind patient to perform daily oral care, every shift Assist patient to perform ADL's Conduct patient checks and document Observation sheet: Q15 minutes Maintain personal safety: every shift Educate patient to report safety concerns to staff, every shift Monitor environment for contraband/sharps Medication safety: Monitor for expected outcome, potential side effects: every shift, Assess barriers to learning: every shift, Assess readiness for medication education: every shift Milieu Narrative: Bipolar Disorder -Individual and group therapy -Continue Zyprexa 20 mg PO HS -Continue [place] 600 mg PO HS -Medicine consult -Cardiology consult Family Contact Family contact: Patient agrees to contact, Family has been contacted by patient , Telephone contact initiated by staff Family contact name: Zoie Sanchez - sister Family contacted how many times per week?: 1 - Outside Agency [facility] Care involvment: Information-sharing Agency contact number: [address] [place] [address]. - Goals for Treatment Patient goals for treatment: Pt to be encouraged to attend activity and clinical groups 3-5x per week to decrease symptoms of paranoia, delusions and employ reality testing. Pt to be encouraged to participate in group milieu to develop coping skills to reduce psychiatric hospitalizations and further decompensation. Coordinate discharge resources needs by providing referral for psychiatric treatment follow up in the community. Discharge/Continuing Care - Education Needs Education Needs: Family Medication, Family Diagnosis/Disease Process, Family Coping Skills, Family Placement options, Family Community resources, Family Activities of Daily Living, Family Health Practices/Safety, Family Personal Hygiene/Grooming, Family Aftercare Safety Plan, Patient Medication, Patient Diagnosis/Disease Process, Patient Coping Skills, Patient Placement options, Patient Community resources, Patient Activities of Daily Living, Patient Health Practices/Safety, Patient Personal Hygiene/Grooming, Patient Aftercare Safety Plan - Discharge Discharge Criteria: Tolerates medication w/o severe side effects, Free of paranoid thoughts, Free of agitation, Normal sleep pattern, Ability to care for self, Reduction of target symptoms Discharge to:: Home - Additional Comments 10/03/17 12:07 Pt seen and discussed in team meeting. Reason for hospitalization reviewed and discussed. Pt reported he was at [facility] for several days following chest pain and anxiety. Pt reported that his pacemaker batteries had to be replaced. Pt reported medication non-adherence. Pt presents with acute mae, pressured speech, disorganized thought process, flight of ideas, and hyperverbal. Pt presents with poor insight and judgment due to chronic mental illness and medication non-adherence. Pt's social and medical issues reviewed and discussed. 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 Pt signed a 48 hour notice of intent to leave on 10/03/2017 at 9:12AM. [facility] [place] order entered and Screening process explained to pt. Pt verbalized understanding of same. Pt's medications reviewed. SW to continue to follow case. SW to contact pt's sister for additional collateral information. - Treatment Team Participation Patient/Family/SO Statement: Bipolar Disorder -Individual and group therapy -Continue Zyprexa 20 mg PO HS -Continue [place] 600 mg PO HS -Medicine consult -Cardiology consult Discussed with Family/SO: No Was Patient/Family/SO present at Treatment Team Meeting: Yes Treatment Plan Review Family/SO/Caregiver participation: No Additional Comments: Pt seen and discussed in team meeting. Pt's progress and bx on the unit reviewed. Discharge planning reviewed. Pt reported feeling "good." Emotionally pt stated he is "fine." Pt's medications reviewed and discussed. Pt's after care and follow up reviewed and discussed at length with pt. Psycho-education provided. - Problem Altered Sleep Patterns Date Initiated: 10/02/17 Time Initiated: 21:53 Progress toward outcomes: improved Altered thought process Date Initiated: 10/02/17 Time Initiated: 21:53 Progress toward outcomes: improved - Discharge / Continuing Care Discharge to:: Home, With Family Behavioral Health Services: Outpatient therapy, Other (Medication management) Health Needs: Follow up care/test, Doctor appointments, Nutritional, Medications /Rx, Recreational/Social
== END 2017-10-10 12:20 | disposition home or self-care (01) | DRG 430 ==
LOC: H.STEP 19:33
PROVIDERS: ADMIT Psychiatry & Neurology Psychiatry; ATTEND Psychiatry & Neurology Psychiatry
PROC: GZHZZZZ Group Psychotherapy (ICD-10-PCS; principal; 2017-10-02)
DX: F31.2 Bipolar disorder, current episode manic severe with psychotic features (principal); I10 Essential (primary) hypertension; E78.5 Hyperlipidemia, unspecified; I25.10 Atherosclerotic heart disease of native coronary artery without angina pectoris; Z95.0 Presence of cardiac pacemaker; E78.00 Pure hypercholesterolemia, unspecified; I48.91 Unspecified atrial fibrillation; I95.1 Orthostatic hypotension; Z91.14 Patient's other noncompliance with medication regimen; Z88.0 Allergy status to penicillin; Z88.6 Allergy status to analgesic agent; Z91.041 Radiographic dye allergy status